=== PATIENT | male | born 1950 | race Caucasian/White ===

== ENCOUNTER → 2018-06-26 | Outpatient (CLI) | payer BC ==
--- NOTE | 2018-06-26 14:04 | Diagnostic Imaging Report ---
INDICATION: Right shoulder pain, fall. TIME OF EXAM: 01:50 p.m. Multiple views of right shoulder were obtained. Glenohumeral and acromioclavicular alignment normal. Acromiohumeral space is normal. No fracture or dislocation is seen. IMPRESSION: No acute bony abnormality is detected. Dictated by: Dictated on workstation # [id number]
== END ==
LOC: RAD FS 13:44
PROVIDERS: ATTEND Nurse Practitioner
DX: M25.511 Pain in right shoulder (principal); W19.XXXA Unspecified fall, initial encounter
CPT/HCPCS: 73030

== ENCOUNTER → 2018-09-07 | Outpatient (CLI) | payer BC ==
--- NOTE | 2018-09-07 12:11 | Diagnostic Imaging Report ---
EXAMINATION: MRI of the right shoulder without contrast dated 09/07/2018. TECHNIQUE: Multiplanar, multisequence non contrast-enhanced MRI of the right upper extremity was accomplished. INDICATION: Status post fall on shoulder 05/16/2018. Pain and weakness. Decreasing range of motion. FINDINGS: The supraspinatus and infraspinatus tendons demonstrate full-thickness tears with retraction noted. Degree of retraction is just distal to the acromioclavicular joint. The more posterior infraspinatus tendon demonstrates integrity of the bursal-sided fibers with a deep articular-sided tear in this region. The subscapularis tendon demonstrates marked thinning with much of the tendon demonstrating a deep partial articular-sided tear. The transverse ligament appears to be intact. There is a likely full-thickness tear through the subscapularis tendon along its cranial aspect. The long head of the biceps tendon appears chronically torn. Residual tendinous material lies in the distal biceps tendon sheath and bicipital groove more proximally; however, it is not seen, perhaps chronically retracted. There is a cystic collection immediately anterior to the mid glenoid. It contains internal septations and measures approximately 1.6 cm in cranial to caudal dimension. It abuts the anterior labrum and are likely paralabral cysts. This suggests an underlying labral tear. Diffuse heterogeneity throughout the anterior labrum is noted with high signal along the posterior labrum also noted, perhaps due to a focal tear in this region as well. These findings are better characterized with post-arthrogram imaging if clinically indicated. There is a moderate glenohumeral joint effusion. There is fluid in the subdeltoid-subacromial bursa. Multiple hypointensities within the joint fluid and in the bursa, likely loose bodies from the joint. There are areas of spurring and edema at the acromioclavicular joint. There is diffuse atrophy of the supraspinatus muscle with atrophy of the subscapularis muscle as well. Mild fatty infiltration within the musculature throughout the rotator cuff with some preservation of the infraspinatus tendon noted. Fatty infiltration in the teres minor muscle also seen. IMPRESSION: 1. Full-thickness tear of the supraspinatus tendon with retraction as above with a full-thickness tear of the anterior infraspinatus tendon. Predominantly a deep articular-sided partial tear of the remaining infraspinatus tendon. 2. Deep predominantly articular-sided tear of much of the subscapularis tendon with the cranial fibers demonstrating a full-thickness extension. 3. Retracted likely chronic biceps tendon tear. 4. Suspected diffuse labral tear with adjacent likely paralabral cysts anteriorly. See above discussion. Other findings as above. Dictated by: Dictated on workstation # [id number]
== END ==
LOC: RAD 07:39
PROVIDERS: ATTEND Nurse Practitioner
DX: M75.121 Complete rotator cuff tear or rupture of right shoulder, not specified as traumatic (principal)
CPT/HCPCS: 73221

== ENCOUNTER → 2020-10-20 | Outpatient (CLI) | payer MEDICARE ==
--- NOTE | 2020-10-20 10:18 | Diagnostic Imaging Report ---
EXAMINATION: Left ankle radiograph, 3 views. COMPARISON: None. HISTORY: 70-year-old male, left ankle pain. FINDINGS: There is severe tibiotalar joint space loss with anterior and posterior osteophytes. There is no identified large tibiotalar joint effusion. There is no cortical or aggressive bone destruction. There is no identified acute fracture. IMPRESSION: 1. 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 Dictated by: Dictated on workstation # [id number]
== END ==
LOC: RAD FS 09:16
PROVIDERS: ATTEND Nurse Practitioner
DX: M19.072 Primary osteoarthritis, left ankle and foot (principal)
CPT/HCPCS: 73610